=== PATIENT | male | born 1970 | race Caucasian/White ===

== ENCOUNTER 2022-12-10 08:25 | Emergency (ER) | payer OTHER, SELFPAY ==
--- NOTE | 2022-12-10 08:34 | ED.BACK ---
HPI - Back Pain/Injury General Chief Complaint: Back Pain/Injury Stated Complaint: Back/Left Leg Injury Source: patient and RN notes reviewed History of Present Illness HPI Narrative: 32-year-old male presents to urgent care with complaints of left lower back pain that radiates to his left buttocks and left hamstring. Patient states he has chronic back pain and usually has sciatica on his right leg. Patient states yesterday he was lifting an 800 lb object at work that he ?normally does. ? Patient states he began having this pain afterwards. Denies any numbness, tingling, saddle anesthesia, incontinence of urine or stool, fevers, chills, or dysuria. Patient is not taking anything for his pain. Some parts of this dictation were generated by voice recognition software and may contain typographical and/or grammatical inaccuracies. Related Data Home Medications Medication Instructions Recorded Confirmed levetiracetam 500 mg tablet 1,500 mg PO BID 12/10/22 12/10/22 Allergies Allergy/AdvReac Type Severity Reaction Status Date / Time No Known Allergies Allergy Verified 12/10/22 08:43 Review of Systems Review of Systems: Pertinent positives and pertinent negatives per HPI. [facility] Comments At the time of my signature, I reviewed and agree with the nursing past medical, surgical, social, and family history. There is no relevant family history pertinent to the patient complaint. Exam Narrative: GENERAL: This is a well-nourished, well-developed patient, in no apparent distress. HEAD: normocephalic, atraumatic. EYES: Sclera clear/white. Vision is grossly intact. EARS: External ears normal, auditory canals clear and without drainage. Hearing grossly intact. NOSE: External nose normal with no obvious nasal discharge, nares without redness, no rhinorrhea. THROAT: Mucous membranes moist, posterior pharynx clear. NECK: Neck supple, non-tender without lymphadenopathy, masses or thyromegaly. CARDIOVASCULAR: Regular rate and rhythm without murmurs, gallops, or rubs. RESPIRATORY: Clear to auscultation. Breath sounds equal bilaterally. No wheezes, rales, or rhonchi. SKIN: warm, intact with no suspicious lesions or rash, good texture and turgor. NEURO: awake, alert, and oriented to person, place and time. There were no obvious focal neurologic abnormalities. EXTREMITIES: No clubbing, cyanosis, or edema. No joint tenderness, effusion, or edema noted. BACK: Nontender without deformity or crepitance. No flank tenderness. Course Course Level of Care: Express Care Visit Vital Signs Vital signs: Vital Signs Temperature 98.0 F 12/10/22 08:38 Pulse Rate 61 12/10/22 08:38 Respiratory Rate 16 12/10/22 08:38 Blood Pressure 132/79 12/10/22 08:38 Pulse Oximetry 99 12/10/22 08:38 Oxygen Delivery Room Air 12/10/22 08:38 Temperature 98.0 F 12/10/22 08:38 Pulse Rate 61 12/10/22 08:38 Respiratory Rate 16 12/10/22 08:38 Blood Pressure 132/79 12/10/22 08:38 Pulse Oximetry 99 12/10/22 08:38 Oxygen Delivery Room Air 12/10/22 08:38 reviewed. MDM - Back Pain/Injury MDM Narrative Medical decision making narrative: May take 600 mg of ibuprofen every 6 hours with food if needed. Take the steroids as directed. May take the Robaxin if needed. Do not drive or operate heavy machinery while taking the Robaxin. Go to the emergency dept with any new or worsening symptoms. Upon discharge, pt became agitated and accusatory towards staff, requesting Flexeril. 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 Pt states he doesn't want the steroids. He wanted his sciatica fixed. Pt informed he will have to follow up with orthopedics or spinal surgeon to have his sciatica further investigated and no other intervention was going to occur here at urgent care. Pt accused myself of getting a kickback
[2022-12-10 08:38] VITALS: BP 132/79; PULSE 61; RESP 16; TEMP 36.7; O2SAT 99
--- NOTE | 2022-12-10 09:24 | PC.NURSE ---
THIS R.N. IN TO DISCHARGE PATIENT. PT IS ARGUING WITH RN ABOUT REASONING FOR MEDROL DOSE AALIYAH AND WANTS FLEXERIL INSTEAD OF ROBAXIN. EXPLAINED USE OF MEDROL DOSE AALIYAH AND HE REPEATEDLY SAYING YOU DON'T WANT TO FIX MY PROBLEM, YOU JUST WANT ME TO KEEP COMING BACK FOR THE SAME REASON SO YOU GET A PAYCHECK. PT WAS RAISING VOICE AND PROVIDER IN TO EXPLAIN WELL. HE CONTINUES TO ARGUE WITH STAFF AND STATES YOU ARE ONLY GIVING ME THESE DRUGS BECAUSE YOU GET KICKBACKS. EXPLAINED TO PT USE OF ROBAXIN AND DISCHARGED WITH RECOMMENDATION TO FOLLOW WITH HIS NEUROLOGIST.
== END 2022-12-10 09:30 | disposition home or self-care (01) ==
PROVIDERS: Emergency Provider Nurse Practitioner Family
DX: M54.32 Sciatica, left side (principal); G40.909 Epilepsy, unspecified, not intractable, without status epilepticus
CPT/HCPCS: 99211; G0463